=== PATIENT | male | born 1975 | race Native Hawaiian/Other Pacific Islander ===

== ENCOUNTER 2017-01-01 04:11 | Emergency (ER) | payer MEDICAID ==
[2017-01-01 04:28] VITALS: BMI 29.0
[2017-01-01 04:31] VITALS: BP 134/86; PULSE 59; RESP 16; TEMP 98.6; O2SAT 98
[2017-01-01] MEDS ORDERED: Oxycodone/Acetaminophen 5/325 mg Tab PO STA (04:37)
--- NOTE | 2017-01-01 04:44 | ED PDOC ---
HPI: Dental Pain/Injury Time Seen by Provider: 01/01/17 04:15 Chief Complaint (Nursing): Dental Pain Chief Complaint (Provider): Toothache History Per: Patient Additional Complaint(s): Patient is a 41 yo male, no PMH, presents to ED with c/o rt sided toothache x 2 days. Denies fever. Pt took Tylenol and Motrin at home 4 hours ago, no relief. Past Medical History Reviewed: Nursing Documentation, Vital Signs Vital Signs: Last Vital Signs Temp 98.6 F 01/01/17 04:28 Pulse 59 L 01/01/17 04:28 Resp 16 01/01/17 04:28 BP 134/86 01/01/17 04:28 Pulse Ox 98 01/01/17 04:28 - Medical History PMH: No Chronic Diseases - Surgical History Surgical History: No Surg Hx - Family History Family History: States: No Known Family Hx - Home Medications Home Medications: Ambulatory Orders Medication Instructions Recorded Penicillin VK [Penicillin VK Tab] 500 mg PO BID #14 tab 01/01/17 oxyCODONE/Acetaminophen [Percocet 1 ea PO Q6 PRN #5 tab 01/01/17 5/325 mg Tab] - Allergies Allergies/Adverse Reactions: Allergies Allergy/AdvReac Type Severity Reaction Status Date / Time No Known Allergies Allergy Verified 01/01/17 04:28 Review of Systems ROS Statement: Except As Marked, All Systems Reviewed And Found Negative ENT: Positive for: Other (toothache) Physical Exam - Reviewed Nursing Documentation Reviewed: Yes Vital Signs Reviewed: Yes - Physical Exam Appears: Positive for: Well, Non-toxic, No Acute Distress Head Exam: Positive for: ATRAUMATIC, NORMAL INSPECTION, NORMOCEPHALIC Skin: Positive for: Normal Color, Warm, DRY Eye Exam: Positive for: EOMI, Normal appearance, PERRL ENT: Positive for: Other (right lower 3rd molar (+) dental taran, mld surrounding eryhtema to gumline) Neck: Positive for: Normal, Painless ROM Cardiovascular/Chest: Positive for: Regular Rate, Rhythm Respiratory: Positive for: CNT, Normal Breath Sounds Gastrointestinal/Abdominal: Positive for: Normal Exam, Bowel Sounds, Soft Back: Positive for: Normal Inspection Extremity: Positive for: Normal ROM Neurologic/Psych: Positive for: Alert, Oriented - ECG O2 Sat by Pulse Oximetry: 98 Medical Decision Making Medical Decision Making: Pt medicated with Percocet PO, Good relief obtained Pt will follow up with dentist on Monday Disposition - Clinical Impression Clinical Impression: Toothache - Patient ED Disposition Is Patient to be Admitted: No - Disposition Disposition: Routine/Home Disposition Time: 05:08 Condition: STABLE Prescriptions: oxyCODONE/Acetaminophen [Percocet 5/325 mg Tab] 1 ea PO Q6 PRN #5 tab PRN Reason: Pain, Severe (8-10) Penicillin VK [Penicillin VK Tab] 500 mg PO BID #14 tab Instructions: Toothache (ED) Forms: [facility] ([place]) - POA Present On Arrival: None
== END 2017-01-01 05:11 | disposition home or self-care (01) ==
LOC: H.ER 04:11
DX: K08.89 Other specified disorders of teeth and supporting structures (principal)